=== PATIENT | male | born 1950 | race Caucasian/White ===

== ENCOUNTER → 2017-10-15 | Outpatient (CLI) | payer MEDICARE ==
[2017-10-15 08:39] LABS: Albumin 4.5 g/dL (3.5-5.0); Calcium 10.2 mg/dL (8.4-10.2); Potassium 4.8 mmol/L (3.5-5.1); Total Bilirubin 0.7 mg/dL (0.2-1.3); Total Protein 7.6 g/dL (6.3-8.2)
== END | disposition home or self-care (01) ==
LOC: LABWHC1 07:10
PROVIDERS: ATTEND Internal Medicine Interventional Cardiology
DX: E78.2 Mixed hyperlipidemia (principal)
CPT/HCPCS: 36415; 80053; 80061

== ENCOUNTER → 2018-06-23 | Outpatient (CLI) | payer MEDICARE ==
[2018-06-23 11:58] LABS: LDL Cholesterol,Calculated 77.8 mg/dL (0.0-131.0); VLDL Calculation 25.2 mg/dL (5.00-40.00)
== END ==
LOC: LABWHC1 06:45
PROVIDERS: ATTEND Internal Medicine Interventional Cardiology
DX: E78.2 Mixed hyperlipidemia (principal)
CPT/HCPCS: 36415; 80061; 84450; 84460

== ENCOUNTER 2018-12-09 12:41 | Observation (INO) | payer MEDICARE ==
[2018-12-09] MEDS ORDERED: SODIUM CHLORIDE 0.9% 1,000 ML IV STA (13:09)
--- NOTE | 2018-12-09 13:18 | ED ---
Syncope HPI - General Chief Complaint: Syncope Stated Complaint: near syncope Time Seen by Provider: 12/09/18 12:41 Source: patient, family, EMS, RN notes reviewed Mode of arrival: EMS Limitations: no limitations - History of Present Illness Initial Comments: This is a 68-year-old male with a history of hypertension and bypass surgery 2004 who was taking a nap when the past he passed out cold nauseated and was cool and clammy. This initial information was obtained from EMS personnel the patient's arrives she had stated she thought he was acting like he was having seizure-like episode with extension of his arm on the right and flexion of his arm and the left lasting just a few seconds. He was clammy. Blood pressure the 160s systolic. He was confused and did not have any memory of the event. Prior to this he denied any fevers chills nausea vomiting sweats other symptoms. Of note patient did just recently returned from a trip involving about 2700 [address] of [address]. He denies any palpitations any focal weakness any other modifying factors at this time. Also note the patient is a runner normally is slightly bradycardic with heart rates in the mid to high 50s. MD Complaint: loss of consciousness - Related Data Home Medications Medication Instructions Recorded Confirmed Acetaminophen [Tylenol Extra 500 mg PO Q6H PRN 12/09/18 12/09/18 Strength] Aspirin EC [Ecotrin Low Dose] 81 mg PO DAILY 12/09/18 12/09/18 Losartan/Hydrochlorothiazide 1 tab PO DAILY 12/09/18 12/09/18 [Hyzaar 100-12.5 Tablet] Metoprolol Tartrate [Lopressor] 25 mg PO 12/09/18 12/09/18 Metoprolol Tartrate [Lopressor] 50 mg PO [facility] 12/09/18 12/09/18 Multivit-Min/FA/Lycopen/Lutein 1 tab PO DAILY 12/09/18 12/09/18 [Centrum Silver Tablet] Omeprazole Magnesium [PriLOSEC OTC] 20 mg PO DAILY 12/09/18 12/09/18 Pravastatin Sodium [Pravachol] 40 mg PO HS 12/09/18 12/09/18 Super Cinnamon 1 tab PO DAILY 12/09/18 12/09/18 amLODIPine [Norvasc] 5 mg PO BID 12/09/18 12/09/18 Allergies Allergy/AdvReac Type Severity Reaction Status Date / Time No Known Allergies Allergy Verified 12/09/18 13:21 Review of Systems ROS Statement: Those systems with pertinent positive or pertinent negative responses have been documented in the HPI. ROS Other: All systems not noted in ROS Statement are negative. Past Medical History Past Medical History: Hyperlipidemia, Hypertension History of Any Multi-Drug Resistant Organisms: None Reported Past Surgical History: Coronary Bypass/CABG, Heart Catheterization With Stent Past Psychological History: No Psychological Hx Reported Smoking Status: Never smoker Past Alcohol Use History: Occasional Past Drug Use History: None Reported General Exam - General Exam Comments Initial Comments: This is a well-developed well-nourished awake alert oriented 3 male Limitations: no limitations General appearance: alert, in no apparent distress Head exam: Present: atraumatic, normocephalic, normal inspection Eye exam: Present: normal appearance, PERRL, EOMI. Absent: scleral icterus, co njunctival injection, periorbital swelling ENT exam: Present: normal exam, mucous membranes moist Neck exam: Present: normal inspection, full ROM, other (No stridor JVD or bruits). Absent: tenderness, meningismus, lymphadenopathy Respiratory exam: Present: normal lung sounds bilaterally. Absent: respiratory distress, wheezes, rales, rhonchi, stridor Cardiovascular Exam: Present: normal rhythm, bradycardia, normal heart sounds. Absent: systolic murmur, diastolic murmur, rubs, gallop, clicks GI/Abdominal exam: Present: soft, normal bowel sounds. Absent: distended, te nderness, guarding, rebound, rigid Extremities exam: Present: normal inspection, full ROM, normal capillary refill. Absent: tenderness, pedal edema, joint swelling, calf tenderness Back exam: Present: normal inspection Neurological exam: Present: alert, oriented X3, CN II-XII intact Psychiatric exam: Present: normal affect, normal mood Skin exam: Present: warm, dry, intact, normal color. Absent: rash Course Vital Signs 12/09/18 12/09/18 12/09/18 12:43 14:41 15:00 Temperature 97.5 F L Pulse Rate 55 L 58 L 58 L Respiratory 16 18 10 L Rate Blood Pressure 152/81 143/74 O2 Sat by Pulse 100 100 100 Oximetry 12/09/18 12/09/18 12/09/18 15:30 16:00 16:30 Temperature Pulse Rate 63 70 64 Respiratory 14 15 15 Rate Blood Pressure 143/74 143/74 143/74 O2 Sat by Pulse 100 100 100 Oximetry - Reevaluation(s) Reevaluation #1: 12/09/18 16:57 I did reevaluate patient several occasions no changes he feels back to normal. Medical Decision Making - Medical Decision Making I did discuss the findings with patient family members as well as with Dr. Lombardi the patient will be admitted MRI will be ordered. Neurology will be consulted patient will be started on Keppra. - Lab Data Result diagrams: 12/09/18 12:50 12/09/18 12:50 Lab Results 12/09/18 12/09/18 12/09/18 Range/Units 12:50 12:50 12:50 WBC 6.8 (3.8-10.6) k/uL RBC 4.76 (4.30-5.90) m/uL Hgb 13.8 (13.0-17.5) gm/dL Hct 39.8 (39.0-53.0) % MCV 83.7 (80.0-100.0) fL MCH 29.0 (25.0-35.0) pg MCHC 34.6 (31.0-37.0) g/dL RDW 12.8 (11.5-15.5) % Plt Count 250 (150-450) k/uL Neutrophils % 60 % Lymphocytes % 26 % Monocytes % 8 % Eosinophils % 3 % Basophils % 1 % Neutrophils # 4.1 (1.3-7.7) k/uL Lymphocytes # 1.8 (1.0-4.8) k/uL Monocytes # 0.5 (0-1.0) k/uL Eosinophils # 0.2 (0-0.7) k/uL Basophils # 0.1 (0-0.2) k/uL PT 10.5 (9.0-12.0) sec INR 1.0 (<1.2) APTT 21.1 L (22.0-30.0) sec D-Dimer 0.29 (<0.60) mg/L FEU Sodium 136 L (137-145) mmol/L Potassium 4.1 (3.5-5.1) mmol/L Chloride 104 (98-107) mmol/L Carbon Dioxide 22 (22-30) mmol/L Anion Gap 10 mmol/L BUN 25 H (9-20) mg/dL Creatinine 1.02 (0.66-1.25) mg/dL Est GFR (CKD-EPI)AfAm 86 (>60 ml/min/1.73 sqM) Est GFR (CKD-EPI)NonAf 74 (>60 ml/min/1.73 sqM) Glucose 103 H (74-99) mg/dL Calcium 9.5 (8.4-10.2) mg/dL Magnesium 1.6 (1.6-2.3) mg/dL Total Bilirubin 0.6 (0.2-1.3) mg/dL AST 33 (17-59) U/L ALT 28 (21-72) U/L Alkaline Phosphatase 60 (38-126) U/L Creatine Kinase 139 (55-170) U/L Troponin I (0.000-0.034) ng/mL Total Protein 7.0 (6.3-8.2) g/dL Albumin 4.0 (3.5-5.0) g/dL TSH 3.760 (0.465-4.680) mIU/L Urine Color Urine Appearance (Clear) Urine pH (5.0-8.0) Ur Specific [place] (1.001-1.035) Urine Protein (Negative) Urine Glucose (UA) (Negative) Urine Ketones (Negative) Urine Blood (Negative) Urine Nitrite (Negative) Urine Bilirubin (Negative) Urine Urobilinogen (<2.0) mg/dL Ur Leukocyte Esterase (Negative) 12/09/18 12/09/18 Range/Units 12:50 13:30 WBC (3.8-10.6) k/uL RBC (4.30-5.90) m/uL Hgb (13.0-17.5) gm/dL Hct (39.0-53.0) % MCV (80.0-100.0) fL MCH (25.0-35.0) pg MCHC (31.0-37.0) g/dL RDW (11.5-15.5) % Plt Count (150-450) k/uL Neutrophils % % Lymphocytes % % Monocytes % % Eosinophils % % Basophils % % Neutrophils # (1.3-7.7) k/uL Lymphocytes # (1.0-4.8) k/uL Monocytes # (0-1.0) k/uL Eosinophils # (0-0.7) k/uL Basophils # (0-0.2) k/uL PT (9.0-12.0) sec INR (<1.2) APTT (22.0-30.0) sec D-Dimer (<0.60) mg/L FEU Sodium (137-145) mmol/L Potassium (3.5-5.1) mmol/L Chloride (98-107) mmol/L Carbon Dioxide (22-30) mmol/L Anion Gap mmol/L BUN (9-20) mg/dL Creatinine (0.66-1.25) mg/dL Est GFR (CKD-EPI)AfAm (>60 ml/min/1.73 sqM) Est GFR (CKD-EPI)NonAf (>60 ml/min/1.73 sqM) Glucose (74-99) mg/dL Calcium (8.4-10.2) mg/dL Magnesium (1.6-2.3) mg/dL Total Bilirubin (0.2-1.3) mg/dL AST (17-59) U/L ALT (21-72) U/L Alkaline Phosphatase (38-126) U/L Creatine Kinase (55-170) U/L Troponin I <0.012 (0.000-0.034) ng/mL Total Protein (6.3-8.2) g/dL Albumin (3.5-5.0) g/dL TSH (0.465-4.680) mIU/L Urine Color Light Yellow Urine Appearance Clear (Clear) Urine pH 6.5 (5.0-8.0) Ur Specific [place] 1.011 (1.001-1.035) Urine Protein Negative (Negative) Urine Glucose (UA) Negative (Negative) Urine Ketones Negative (Negative) Urine Blood Negative (Negative) Urine Nitrite Negative (Negative) Urine Bilirubin Negative (Negative) Urine Urobilinogen <2.0 (<2.0) mg/dL Ur Leukocyte Esterase Negative (Negative) - Radiology Data Radiology results: report reviewed (I did review the imaging and reports x-rays are unremarkable CAT scan does show some evidence of a hemangioma versus lacunar infarct on the right side.), image reviewed Disposition Clinical Impression: Seizure, Vasovagal reaction Disposition: ADMITTED IP TO THIS [facility] Condition: Stable Referrals: Carlos Lombardi MD [Primary Care Provider] - 1-2 days
[2018-12-09 13:35] LABS: Basophils # (A) 0.1 k/uL (0-0.2); Basophils % (A) 1 %; Eosinophils # (A) 0.2 k/uL (0-0.7); Eosinophils % (A) 3 %; HCT 39.8 % (39.0-53.0); HGB 13.8 gm/dL (13.0-17.5); Lymphocytes # (A) 1.8 k/uL (1.0-4.8); Lymphocytes % (A) 26 %; MCHC 34.6 g/dL (31.0-37.0); MCV 83.7 fL (80.0-100.0); Mean Platelet Volume 6.7; Monocytes # (A) 0.5 k/uL (0-1.0); Monocytes % (A) 8 %; Neutrophils # (A) 4.1 k/uL (1.3-7.7); Neutrophils % (A) 60 %; Platelet Count 250 k/uL (150-450); RBC 4.76 m/uL (4.30-5.90); RDW 12.8 % (11.5-15.5); WBC 6.8 k/uL (3.8-10.6)
[2018-12-09 13:43] LABS: Calcium 9.5 mg/dL (8.4-10.2); Magnesium 1.6 mg/dL (1.6-2.3); Potassium 4.1 mmol/L (3.5-5.1); Total Bilirubin 0.6 mg/dL (0.2-1.3)
[2018-12-09 13:43] LABS: Appearance,Urine Clear (Clear); Bilirubin,Urine Negative (Negative); Blood,Urine Negative (Negative); Color,Urine Light Yellow; Glucose,Urine (UA) Negative (Negative); Ketones,Urine Negative (Negative); Leukocyte Esterase,Urine Negative (Negative); Nitrite,Urine Negative (Negative); PH, Urine 6.5 (5.0-8.0); Protein,Urine Negative (Negative); Specific Gravity,Urine 1.011 (1.001-1.035); Urobilinogen,Urine <2.0 mg/dL (<2.0)
--- NOTE | 2018-12-09 13:49 | XR ---
EXAMINATION TYPE: XR chest 2V DATE OF EXAM: 12/09/2018 COMPARISON: NONE HISTORY: Cough and near syncope TECHNIQUE: Frontal and lateral views of the chest are obtained. FINDINGS: There is no focal air space opacity, pleural effusion, or pneumothorax seen. Post CABG darci nges of the chest are seen. There is mild right hemidiaphragm elevation. The cardiac silhouette size is within normal limits. Mild multilevel degenerative changes of the spine. The osseous structures a re intact. IMPRESSION: No acute cardiopulmonary process.
[2018-12-09 13:56] LABS: D-Dimer 0.29 mg/L FEU (<0.60); Prothrombin Time 10.5 sec (9.0-12.0)
--- NOTE | 2018-12-09 13:59 | CT ---
EXAMINATION TYPE: CT brain wo con DATE OF EXAM: 12/09/2018 COMPARISON: INDICATION: Possible seizure while sleeping. DLP: 1172.4 mGycm, Automated exposure control for dose reduction was used. CONTRAST: None CT of the brain is performed utilizing 3 mm thick sections through the posterior fossa and 3 mm thick sections through the remaining calvarium. Study is performed within 24 hours of arrival to the hosp ital. No abnormal hyperdensity is present to suggest an acute intracranial hemorrhage. No mass lesion is evident. Some physiologic basal ganglion calcification is present. No acute infarcts are evident. There is some mild periventricular white matter hypodensity, likely on the basis of chronic white matter ischemic changes. Ventricles and sulci are appropriate for the patient age. There is a hypodensity posterior and super ior to the occipital horn right lateral ventricle. This could be trapped ventricle. Other etiologies are not excluded. Recommend follow-up contrast MRI brain with the patient is stable. Other etiologies could include hemangioblastoma. Paranasal sinuses and mastoid air cells within the [id number] are clear. IMPRESSIONS: 1. There may be trapped ventricle adjacent to the occipital horn right lateral ventricle. Other fran ologies could include a hemangioma or lacunar infarct. Additional workup with contrast MRI of the pat ient is stable is recommended
[2018-12-09 14:05] LABS: Partial Thromboplastin Time 21.1 sec (22.0-30.0)
[2018-12-09] MEDS ORDERED: levETIRAcetam IV 1,000 MG in SALINE 1 100ML.BAG IVPB STA (16:57)
[2018-12-09] MEDS ORDERED: NALOXONE 0.4 MG/ML 1 ML VIAL IV PRN (17:00)
[2018-12-09] MEDS: SODIUM CHLORIDE 0.9% 1,000 ML IV SCH (17:28)
[2018-12-09 18:59] VITALS: BMI 28.6
[2018-12-09] MEDS ORDERED: ACETAMINOPHEN TAB 500 MG TAB PO PRN (19:25)
--- NOTE | 2018-12-09 20:28 | US ---
EXAMINATION TYPE: US carotid duplex BILAT DATE OF EXAM: 12/09/2018 COMPARISON: NONE CLINICAL HISTORY: Pain. Possible seizure EXAM MEASUREMENTS: RIGHT: Peak Systolic Velocity (PSV) cm/sec ----- Right CCA: 88.6 ----- Right ICA: 125.9 ----- Right ECA: 114.1 ICA/CCA ratio: 1.4 RIGHT: End Diastole cm/sec ----- Right CCA: 17.3 ----- Right ICA: 37.2 ----- Right ECA: 9.7 LEFT: Peak Systolic Velocity (PSV) cm/sec ----- Left CCA: 98.7 ----- Left ICA: 85.7 ----- Left ECA: 79.8 ICA/CCA ratio: 0.9 LEFT: End Diastole cm/sec ----- Left CCA: 20.2 ----- Left ICA: 27.5 ----- Left ECA: 7.1 VERTEBRALS (direction of flow): Right Vertebral: Antegrade Left Vertebral: Antegrade Rhythm: Normal IMPRESSION: No significant stenosis.
--- NOTE | 2018-12-09 20:36 | P.HPIM ---
History of Present Illness H&P Date: 12/09/18 Chief Complaint: Syncope, atypical seizure, CAD, hypertension, hyperlipidemia, hypothyroidis 68-year-old male one of my office patient with known for many years with past medical history of CAD post CABG, history of stent placement as well is seen cardiology regular basis also patient is known to have history of hypertension hyperlipidemia and GERD who has been doing well until today when apparently was taking and nap woke up having an episode involving more tremor and shakiness in the right upper extremity jump out of bed mildly confuse sweaty and not feeling well did not compare has what he was doing his help him to go back in bed and all of a sudden had an episode of tonic clonic more tremor and shakiness in the right side and the left side but was not very clear tonic clonic but more atypical seizure with tremor on one side along with slight loss of consciousness for a few minutes and he regained his consciousness his called 911 patient brought to demurs department at [facility] CT of the brain was performed did not show any bleeding but small lacunar area of abnormality in the brain stem. Lab value and testing with troponin negative no sign of infection. 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 Review of Systems CONSTITUTIONAL: Well-developed no acute respiratory distress. EYES: No icterus sclerae, no conjunctivitis. EARS, NOSE, MOUTH, THROAT, and FACE: No sore throat, lymphadenopathy, carotid bruits or deformity. RESPIRATORY: No SOB cough or wheezes. CARDIOVASCULAR: No CP, Palpitation, PND, Orthopnea, or angina. GASTROINTESTINAL: No Abd pain, Nausea or vomiting, no Diarrhea or constipation, No GI Bleed, no distention or masses. GENITOURINARY: Negative for Hematuria or UTI, no kidney stones. INTEGUMENT/BREAST: Negative for any muscular injury with mild osteoarthritis.. HEMATOLOGIC/LYMPHATIC: Negative for bleed or purpura. MUSCULOSKELTAL: Negative for Myalgia or arthralgia. NEURLOGICAL: Positive loss of consciousness questionable of atypical seizure, syncope with no other neuro loss after the episode is gone. BEHAVIORAL/PSYCH: Negative. ENDOCRINE: Negative. Past Medical History Past Medical History: GERD/Reflux, Hyperlipidemia, Hypertension, Osteoarthritis (OA), Pneumonia History of Any Multi-Drug Resistant Organisms: None Reported Past Surgical History: Coronary Bypass/CABG, Heart Catheterization With Stent Date of Last Stent Placement:: 1999 Past Psychological History: No Psychological Hx Reported Smoking Status: Never smoker Past Alcohol Use History: Occasional Past Drug Use History: None Reported - Past Family History Father Family Medical History: Diabetes Mellitus, Hypertension Additional Family Medical History / Comment(s): CABG, aortic stenosis Mother Family Medical History: Cancer, Hypertension Additional Family Medical History / Comment(s): lived to be . [facility] [place] Medications and Allergies Home Medications Medication Instructions Recorded Confirmed Type Acetaminophen [Tylenol Extra 500 mg PO Q6H PRN 12/09/18 12/09/18 History Strength] Aspirin EC [Ecotrin Low Dose] 81 mg PO DAILY 12/09/18 12/09/18 History Losartan/Hydrochlorothiazide 1 tab PO DAILY 12/09/18 12/09/18 History [Hyzaar 100-12.5 Tablet] Metoprolol Tartrate [Lopressor] 25 mg PO HS 12/09/18 12/09/18 History Metoprolol Tartrate [Lopressor] 50 mg PO QAM 12/09/18 12/09/18 History Multivit-Min/FA/Lycopen/Lutein 1 tab PO DAILY 12/09/18 12/09/18 History [Centrum Silver Tablet] Omeprazole Magnesium [PriLOSEC OTC] 20 mg PO DAILY 12/09/18 12/09/18 History Pravastatin Sodium [Pravachol] 40 mg PO HS 12/09/18 12/09/18 History Super Cinnamon 1 tab PO DAILY 12/09/18 12/09/18 History amLODIPine [Norvasc] 5 mg PO BID 12/09/18 12/09/18 History Allergies Allergy/AdvReac Type Severity Reaction Status Date / Time No Known Allergies Allergy Verified 12/09/18 13:21 Physical Exam Vitals: Vital Signs Temp Pulse Pulse Resp BP BP Pulse Ox 12/09/18 18:23 97.5 F L 63 16 139/95 99 12/09/18 18:04 98.2 F 70 16 151/72 96 12/09/18 18:00 65 18 162/87 100 12/09/18 17:30 61 15 143/74 100 12/09/18 17:00 62 12 143/74 100 12/09/18 16:30 64 15 143/74 100 12/09/18 16:00 70 15 143/74 100 12/09/18 15:30 63 14 143/74 100 12/09/18 15:00 58 L 10 L 143/74 100 12/09/18 14:41 58 L 18 100 12/09/18 12:43 97.5 F L 55 L 16 152/81 100 Intake and Output 12/09/18 12/09/18 12/09/18 06:59 14:59 22:59 Other: Weight 81.647 kg General Appearance: Alert, cooperative, no distress, appears stated age. Neck HEENT: Supple, no lymphadenopathy, no thyroid enlargement, no carotid bruits. Lungs: Clear to auscultation without crackles or wheezes no rhonchi, no deformity. Chest Wall: Chest wall normal expansion with deep inspiration no tenderness and no deformity was found on exam, no costochondral pain or discomfort. Heart: Regular rate and rhythm, S1, S2 normal, no murmur, rub or gallop. Back: Symmetric, no curvature, ROM normal, no CVA tenderness. Abdomen: Soft, non-tender, bowel sounds active all four quadrants, no masses, no organomegaly. Extremities: Extremities normal, atraumatic, no cyanosis or edema. Pulses: 2+ and symmetric. Skin: Skin color, texture, tugor normal, no rashes or lesions. Neurologic: Alert oriented x3 cranial nerves II through XII intact, no motor deficit, no abnormal balance or gait. Results CBC & Chem 7: 12/09/18 12:50 12/09/18 12:50 Labs: Abnormal Lab Results - Last 24 Hours (Table) 12/09/18 12/09/18 Range/Units 12:50 12:50 APTT 21.1 L (22.0-30.0) sec Sodium 136 L (137-145) mmol/L BUN 25 H (9-20) mg/dL Glucose 103 H (74-99) mg/dL Thrombosis Risk Factor Assmnt - DVT/VTE Prophylaxis DVT/VTE Prophylaxis: Pharmacologic Prophylaxis ordered, Mechanical Prophylaxis ordered - Choose All That Apply Each Risk Factor Represents 2 Points: Age 61-74 years Thrombosis Risk Factor Assessment Total Risk Factor Score: 2 Thrombosis Risk Factor Assessment Level: Low Risk Assessment and Plan Plan: 1 severe acute syncopal episode: Most likely atypical seizure, consult neurology, continue 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 2 atypical seizure: Patient was loaded with Keppra 500 mg twice a day will be giving, MRI of the brain was order, awaiting for neurology consult patient will be going for EEG as well if any further episodes while in the hospital smaller dose of benzodiazepine on demand to be use. 3 CAD: Post CABG and PCI with stent placement, patient is doing very well on secondary prevention no chest pain or angina. 4 hypertension: Remain on amlodipine 5 mg twice a day along with metoprolol total of 75 mg daily and losartan HCT handed/12.5 mg daily. 5 hyperlipidemia: Has been on pravastatin 40 mg a day. 6 severe GERD: Continue omeprazole 20 mg daily. 7 DVT prophylaxis: Early mobilization and knee-high HARI hose. CODE STATUS: Full code. Admit patient to inpatient status for 1-2 nights.
[2018-12-09] MEDS: amLODIPine 5 MG TAB PO SCH (20:38)
[2018-12-09] MEDS ORDERED: PRAVASTATIN SODIUM 40 MG TAB PO SCH (21:00)
[2018-12-09] MEDS ORDERED: METOPROLOL TARTRATE 25 MG TAB PO SCH (21:00)
[2018-12-10] MEDS: SODIUM CHLORIDE 0.9% 1,000 ML IV SCH (03:51)
[2018-12-10 03:59] VITALS: RESP 18
[2018-12-10] MEDS ORDERED: PANTOPRAZOLE 40 MG TABLET PO SCH (07:30)
[2018-12-10] MEDS ORDERED: LOSARTAN-HCTZ 50-12.5 MG 1 EACH TAB PO SCH (09:00)
[2018-12-10] MEDS ORDERED: ASPIRIN 81 MG PO SCH (09:00)
[2018-12-10] MEDS ORDERED: METOPROLOL TARTRATE 50 MG TAB PO SCH (09:00)
[2018-12-10] MEDS: amLODIPine 5 MG TAB PO SCH (09:23)
--- NOTE | 2018-12-10 10:15 | P.CRDCN ---
History of Present Illness Consult date: 12/10/18 Requesting physician: Carlos Lombardi Reason for Consult (text): This is a pleasant 68-year-old gentleman who follows now with Dr. Mckeon in the office, he used to be a patient of Dr. Stewart. He has a past medical history significant for coronary artery bypass grafting surgery in 2004 at which time he underwent a KIRAN to the LAD and a saphenous vein graft to the diagonal. He also has history of stent placement in 1999 to the diagonal branch.. He has history of hypertension, hyperlipidemia, GERD, frequent vasovagal episodes. Patient has just returned from a long road trip, he states that he was taking a nap at home, woke up with what appeared to be tremors and shakiness according to his . Shortly after that, it appears that the patient had seizure-like activity, his right arm became extremely rigid, it appears as though it may have been an episode of tonic-clonic tremor. Patient was not aware of what was going on, he did appear to lose consciousness for a few minutes. Upon regaining consciousness he was alert and oriented 3, did not lose bowel or bladder function, however he did have significant nausea with an episode of vomiting. 911 was called by his at that time. The initial CAT scan of the brain did not show any bleeding but it showed a small listener area of abnormality at the brainstem. Neurology consultation has been requested, MRI and EEG have been ordered for today. At the time of this episode, the did check the patient's blood pressure which was normal, heart rate was also docu mented to be normal at that time. Chest x-ray did not reveal any acute cardiopulmonary process. EKG on arrival here showed a sinus bradycardia with first-degree AV block and evidence of left ventricular hypertrophy. Carotid Doppler study did not reveal any evidence of significant stenosis. Blood pressure on arrival here 152/80 with a heart rate in the 50s to 60s, 100% on room air. Blood pressure 152/60 with a heart rate in the 50s, 97% on room air. White blood cell count 6.8, hemoglobin 13.8, platelet count 250. D-dimer 0.2. Sodium 136, potassium 4.1, BUN 25 and creatinine 1.0, magnesium is 1.6. TSH is 3.7, troponin 0.012. At the time of my examination this morning, patient feels well, he feels back to his normal self other than the fact he states he feels tired. Past Medical History Past Medical History: GERD/Reflux, Hyperlipidemia, Hypertension, Osteoarthritis (OA), Pneumonia History of Any Multi-Drug Resistant Organisms: None Reported Past Surgical History: Coronary Bypass/CABG, Heart Catheterization With Stent Date of Last Stent Placement:: 1999 Past Psychological History: No Psychological Hx Reported Smoking Status: Never smoker Past Alcohol Use History: Occasional Past Drug Use History: None Reported - Past Family History Father Family Medical History: Diabetes Mellitus, Hypertension Additional Family Medical History / Comment(s): CABG, aortic stenosis Mother Family Medical History: Cancer, Hypertension Additional Family Medical History / Comment(s): lived to be 91. Bone CA Medications and Allergies Home Medications Medication Instructions Recorded Confirmed Type Acetaminophen [Tylenol Extra 500 mg PO Q6H PRN 12/09/18 12/09/18 History Strength] Aspirin EC [Ecotrin Low Dose] 81 mg PO DAILY 12/09/18 12/09/18 History Losartan/Hydrochlorothiazide 1 tab PO DAILY 12/09/18 12/09/18 History [Hyzaar 100-12.5 Tablet] Metoprolol Tartrate [Lopressor] 25 mg PO HS 12/09/18 12/09/18 History Metoprolol Tartrate [Lopressor] 50 mg PO [facility] 12/09/18 12/09/18 History Multivit-Min/FA/Lycopen/Lutein 1 tab PO DAILY 12/09/18 12/09/18 History [Centrum Silver Tablet] Omeprazole Magnesium [PriLOSEC OTC] 20 mg PO DAILY 12/09/18 12/09/18 History Pravastatin Sodium [Pravachol] 40 mg PO HS 12/09/18 12/09/18 History Super Cinnamon 1 tab PO DAILY 12/09/18 12/09/18 History amLODIPine [Norvasc] 5 mg PO BID 12/09/18 12/09/18 History Allergies Allergy/AdvReac Type Severity Reaction Status Date / Time No Known Allergies Allergy Verified 12/09/18 13:21 Physical Exam Vitals: Vital Signs Temp Pulse Pulse Resp BP BP Pulse Ox 12/10/18 03:59 97.9 F 53 L 18 153/67 97 12/09/18 23:42 55 L 16 12/09/18 23:41 98.0 F 55 L 16 119/60 100 12/09/18 20:00 97.5 F L 56 L 18 134/72 98 12/09/18 18:23 97.5 F L 63 16 139/95 99 12/09/18 18:04 98.2 F 70 16 151/72 96 12/09/18 18:00 65 18 162/87 100 12/09/18 17:30 61 15 143/74 100 12/09/18 17:00 62 12 143/74 100 12/09/18 16:30 64 15 143/74 100 12/09/18 16:00 70 15 143/74 100 12/09/18 15:30 63 14 143/74 100 12/09/18 15:00 58 L 10 L 143/74 100 12/09/18 14:41 58 L 18 100 12/09/18 12:43 97.5 F L 55 L 16 152/81 100 Intake and Output 12/09/18 12/10/18 12/10/18 22:59 06:59 14:59 Intake Total 640 480 Output Total 500 Balance 140 480 Intake: Intake, IV Titration 640 Amount Sodium Chloride 0.9% 1, 640 000 ml @ 80 mls/hr IV . [id number] [facility] Rx#:[id number] Oral 480 Output: Urine 500 Other: Voiding Method Toilet Toilet Urinal Urinal # Voids 3 1 Weight 83 kg PHYSICAL EXAMINATION: GENERAL: 68-year-old gentleman in no acute distress at the time of my examination HEENT: Head is atraumatic, normocephalic. Pupils equal, round. Sclera anicter ic. Conjunctiva are clear. Mucous membranes of the mouth are moist. Neck is supple. There is no elevated jugular venous pressure. No carotid bruit is heard. HEART EXAMINATION: Heart S1 and S2 ,a systolic ejection murmur is heard at the base CHEST EXAMINATION: Lungs are clear to auscultation and precussion. No chest wall tenderness is noted on palpation or with deep breathing. ABDOMEN: Soft, nontender. Bowel sounds are heard. No organomegaly noted. EXTREMITIES: 2+ peripheral pulses with no evidence of peripheral edema and no calf tenderness noted. NEUROLOGIC patient is awake, alert and oriented X3. . Results 12/09/18 12:50 12/09/18 12:50 Cardiac Enzymes 12/09/18 12/09/18 Range/Units 12:50 12:50 AST 33 (17-59) U/L Troponin I <0.012 (0.000-0.034) ng/mL Coagulation 12/09/18 Range/Units 12:50 PT 10.5 (9.0-12.0) sec APTT 21.1 L (22.0-30.0) sec CBC 12/09/18 Range/Units 12:50 WBC 6.8 (3.8-10.6) k/uL RBC 4.76 (4.30-5.90) m/uL Hgb 13.8 (13.0-17.5) gm/dL Hct 39.8 (39.0-53.0) % Plt Count 250 (150-450) k/uL Comprehensive Metabolic Panel 12/09/18 Range/Units 12:50 Sodium 136 L (137-145) mmol/L Potassium 4.1 (3.5-5.1) mmol/L Chloride 104 (98-107) mmol/L Carbon Dioxide 22 (22-30) mmol/L BUN 25 H (9-20) mg/dL Creatinine 1.02 (0.66-1.25) mg/dL Glucose 103 H (74-99) mg/dL Calcium 9.5 (8.4-10.2) mg/dL AST 33 (17-59) U/L ALT 28 (21-72) U/L Alkaline Phosphatase 60 (38-126) U/L Total Protein 7.0 (6.3-8.2) g/dL Albumin 4.0 (3.5-5.0) g/dL Current Medications Generic Name Dose Route Start Last Admin Trade Name Freq PRN Reason Stop Dose Admin Acetaminophen 500 mg 12/09/18 19:25 Tylenol Tab PO Q6H PRN Pain Amlodipine Besylate 5 mg 12/09/18 21:00 12/10/18 09:23 Norvasc PO 5 mg BID [facility] Administration Aspirin 81 mg 12/10/18 09:00 12/10/18 09:23 Aspirin PO 81 mg DAILY [facility] Administration HCTZ/Losartan Potassium 2 each 12/10/18 09:00 12/10/18 09:23 Hyzaar 50-12.5 PO 2 each DAILY [place] Administration Sodium Chloride 1,000 mls @ 80 mls/hr 12/09/18 17:00 12/10/18 03:51 Saline 0.9% IV 80 mls/hr .[id number] [facility] Administration Metoprolol Tartrate 25 mg 12/09/18 21:00 12/09/18 20:38 Lopressor PO 25 mg HS [facility] Administration Metoprolol Tartrate 50 mg 12/10/18 09:00 12/10/18 09:23 Lopressor PO 50 mg QAM [facility] Administration Naloxone HCl 0.2 mg 12/09/18 17:00 Narcan IV Q2M PRN Opioid Reversal Pantoprazole Sodium 40 mg 12/10/18 07:30 12/10/18 07:05 Protonix PO 40 mg [id number] [facility] Administration Pravastatin Sodium 40 mg 12/09/18 21:00 12/09/18 20:38 Pravachol PO 40 mg HS [place] Administration Intake and Output 12/09/18 12/10/18 12/10/18 22:59 06:59 14:59 Intake Total 640 480 Output Total 500 Balance 140 480 Intake: Intake, IV Titration 640 Amount Sodium Chloride 0.9% 1, 640 000 ml @ 80 mls/hr IV . [id number] [facility] Rx#:[id number] Oral 480 Output: Urine 500 Other: Voiding Method Toilet Toilet Urinal Urinal # Voids 3 1 Weight 83 kg 12/09/18 12:50 12/09/18 12:50 EKG Interpretations (text) EKG shows sinus bradycardia with first-degree AV block and evidence of left ventricular hypertrophy. Assessment and Plan Plan: Assessment and plan #1 acute episode of unresponsiveness with possible seizure activity. Patient has been initiated on Keppra, MRI and EEG have been ordered for today, neurology following #2 known history of coronary artery disease with prior bypass surgery in 2004 with KIRAN to the LAD and saphenous vein graft to the diagonal branch. Patient also has history of diagonal stenting in 1999 #3 hypertension #4 hyperlipidemia #5 history of vasovagal episodes #6 GERD Plan We will obtain an echocardiogram with Doppler study. Continue to monitor for any significant tachycardia or bradycardia arrhythmias. Await results of EEG and MRI as well as neurology input. Further recommendations to follow DNP note has been reviewed, I agree with a documented findings and plan of care. Patient was seen and examined.
--- NOTE | 2018-12-10 10:45 | ECHOF ---
Referral Reason:Seizure MEASUREMENTS -------- HEIGHT: 177.8 cm WEIGHT: 82.6 kg BP: 153/67 RVIDd: 4.6 cm (< 3.3) IVSd: 1.3 cm (0.6 - 1.1) LVIDd: 4.5 cm (3.9 - 5.3) LVPWd: 1.4 cm (0.6 - 1.1) IVSs: 1.9 cm LVIDs: 2.9 cm LVPWs: 1.9 cm LA Diam: 4.3 cm (2.7 - 3.8) LAESV Index (A-L): 25.79 ml/m Ao Diam: 2.9 cm (2.0 - 3.7) AV Cusp: 1.9 cm (1.5 - 2.6) LA Diam: 4.3 cm (2.7 - 3.8) MV EXCURSION: 26.377 mm (> 18.000) MV EF SLOPE: 126 mm/s (70 - 150) EPSS: 1.7 cm MV E Ramu: 0.98 m/s MV DecT: 183 ms MV A Ramu: 0.72 m/s MV E/A Ratio: 1.37 RAP: 5.00 mmHg RVSP: 43.24 mmHg FINDINGS -------- Sinus rhythm. This was a technically good study. The left ventricular size is normal. There is moderate concentric left ventricular hypertrophy. O verall left ventricular systolic function is normal with, an EF between 60 - 65 %. The right ventricle is severely enlarged. Left atrium is normal size by volume. The right atrial size is normal. Interatrial and interventricular septum intact. The aortic valve is trileaflet and appears structurally normal. The mitral valve is normal. Mild mitral regurgitation is present. There is minimal mitral valve p rolapse. Moderate to severe tricuspid regurgitation present. There is mild pulmonary hypertension. The rig ht ventricular systolic pressure, as measured by Doppler, is 43.24mmHg. The aortic root size is normal. NOT WELL VISUALIZED There is no pericardial effusion. CONCLUSIONS -------- 1. Sinus rhythm. 2. This was a technically good study. 3. The left ventricular size is normal. 4. There is moderate concentric left ventricular hypertrophy. 5. Overall left ventricular systolic function is normal with, an EF between 60 - 65 %. 6. The right ventricle is severely enlarged. 7. Left atrium is normal size by volume. 8. The right atrial size is normal. 9. Interatrial and interventricular septum intact. 10. The aortic valve is trileaflet and appears structurally normal. 11. The mitral valve is normal. 12. Mild mitral regurgitation is present. 13. Moderate to severe tricuspid regurgitation present. 14. There is mild pulmonary hypertension. 15. The right ventricular systolic pressure, as measured by Doppler, is 43.24mmHg. 16. The aortic root size is normal. 17. NOT WELL VISUALIZED 18. There is no pericardial effusion. EARLY CHILDHOOD EDUCATOR AIDE: Alda Rubi RDCS
--- NOTE | 2018-12-10 10:53 | P.CNNES ---
History of Present Illness Consult date: 12/10/18 Reason for Consult: Possible seizure versus vasovagal episode. History of Present Illness: Patient is a 68-year-old male, who has history of vasovagal episodes for a very long time, since last 50+ years. Patient gets fainting episodes, whenever he sees blood, or gets blood draw, or sometimes with other situations. Patient had an unusual episode last night therefore his brought him to the hospital by ambulance. Shortly before noon patient went to take a nap. While he was taking a nap, he probably had a bad dream, and suddenly jerked, as if flying out of bed, legs in the air, almost as if he was preventing a fall, trying to catch himself. He woke up, was sweaty. His checked his blood pressure was 160 systolic and heart rate was fine. He states that he does not feel right. About 5-10 minutes later, patient was laying in the bed, and suddenly he had a tonic episode in which for his one arm was flexed, other extended, he had a glassy look on his face and the color was not right. He started sweating. The episode lasted for 5-10 seconds. There was no tongue bite or loss of control of urine. He felt nauseated afterwards. Once he sat up, patient vomited consisting of gastric biliary fluid. Patient's called 911 and he was brought to the hospital. Patient at present feels fine. Patient has no recollection of memory of the event that happened as above. Patient denies any history of tobacco. He drinks 1 drink of beer or wine every day or every other day. Never heavy drinker. Patient is very active, runs 2-5 miles, couple times a week.. Patient does have hypertension. Patient has long-standing history of vasovagal episodes as mentioned above. One time he had some convulsive syncope a few years ago. A few months ago patient had a syncope after he came back from the bathroom after bowel movement. He never had obvious seizure in the past. Patient's blood test shows normal CBC, PT/PTT, sodium 136 potassium 4.1 and renal functions normal. Liver functions normal, TSH 3.76. UA is negative. His cholesterol is 172, LDL 77, HDL 69. CPK normal. Troponin negative. EKG showed sinus bradycardia with first-degree AV block. Chest x-ray showed no acute cardiopulmonary process. Patient had computed tomography scan of the brain without contrast, which revealed possibility of trapped ventricle adjacent to the occipital horn of the right lateral ventricle. Other etiologies could include hemangioma or lacunar infarct. MRI recommended. Patient had a carotid Doppler which revealed no significant stenosis. Antegrade flow in both vertebral arteries. Patient had a 2-D echo, the results are pending. Review of Systems All systems: negative (As mentioned above in HPI. Denies any pain, headache, focal symptoms, chest pain shortness of breath.) Past Medical History Past Medical History: GERD/Reflux, Hyperlipidemia, Hypertension, Osteoarthritis (OA), Pneumonia History of Any Multi-Drug Resistant Organisms: None Reported Past Surgical History: Coronary Bypass/CABG, Heart Catheterization With Stent Date of Last Stent Placement:: 1999 Past Psychological History: No Psychological Hx Reported Smoking Status: Never smoker Past Alcohol Use History: Occasional Past Drug Use History: None Reported - Past Family History Father Family Medical History: Diabetes Mellitus, Hypertension Additional Family Medical History / Comment(s): CABG, aortic stenosis Mother Family Medical History: Cancer, Hypertension Additional Family Medical History / Comment(s): lived to be 91. Bone CA Medications and Allergies Home Medications Medication Instructions Recorded Confirmed Type Acetaminophen [Tylenol Extra 500 mg PO Q6H PRN 12/09/18 12/09/18 History Strength] Aspirin EC [Ecotrin Low Dose] 81 mg PO DAILY 12/09/18 12/09/18 History Losartan/Hydrochlorothiazide 1 tab PO DAILY 12/09/18 12/09/18 History [Hyzaar 100-12.5 Tablet] Metoprolol Tartrate [Lopressor] 25 mg PO HS 12/09/18 12/09/18 History Metoprolol Tartrate [Lopressor] 50 mg PO QA 12/09/18 12/09/18 History Multivit-Min/FA/Lycopen/Lutein 1 tab PO DAILY 12/09/18 12/09/18 History [Centrum Silver Tablet] Omeprazole Magnesium [PriLOSEC OTC] 20 mg PO DAILY 12/09/18 12/09/18 History Pravastatin Sodium [Pravachol] 40 mg PO HS 12/09/18 12/09/18 History Super Cinnamon 1 tab PO DAILY 12/09/18 12/09/18 History amLODIPine [Norvasc] 5 mg PO BID 12/09/18 12/09/18 History Allergies Allergy/AdvReac Type Severity Reaction Status Date / Time No Known Allergies Allergy Verified 12/09/18 13:21 Physical Examination - Vital Signs Vital Signs: Vital Signs Temp Pulse Pulse Resp BP BP Pulse Ox 12/10/18 03:59 97.9 F 53 L 18 153/67 97 12/09/18 23:42 55 L 16 12/09/18 23:41 98.0 F 55 L 16 119/60 100 12/09/18 20:00 97.5 F L 56 L 18 134/72 98 12/09/18 18:23 97.5 F L 63 16 139/95 99 12/09/18 18:04 98.2 F 70 16 151/72 96 12/09/18 18:00 65 18 162/87 100 12/09/18 17:30 61 15 143/74 100 12/09/18 17:00 62 12 143/74 100 12/09/18 16:30 64 15 143/74 100 12/09/18 16:00 70 15 143/74 100 12/09/18 15:30 63 14 143/74 100 12/09/18 15:00 58 L 10 L 143/74 100 12/09/18 14:41 58 L 18 100 12/09/18 12:43 97.5 F L 55 L 16 152/81 100 Intake and Output 12/09/18 12/10/18 12/10/18 22:59 06:59 14:59 Intake Total 640 480 Output Total 500 Balance 140 480 Intake: Intake, IV Titration 640 Amount Sodium Chloride 0.9% 1, 640 000 ml @ 80 mls/hr IV . [id number] [facility] Rx#:[id number] Oral 480 Output: Urine 500 Other: Voiding Method Toilet Toilet Urinal Urinal # Voids 3 1 Weight 83 kg On examination patient is an elderly male, appears younger than his age. He is fully alert awake, oriented to time place and person. Speech and language functions normal. Attention and concentration fund of knowledge is adequate. On cranial nerve examination his pupils are round and reacting to light, visual atkins are full. Extraocular muscles are intact. Face is symmetric, tongue protrudes the midline. Palatal elevation and sensation normal. On muscle strength testing there is no pronator drift and the strength is normal in the arms and legs distally and proximally. Reflexes are 2+ in the upper limbs, trace to 1 in the lower limbs and plantars downgoing sensory touch is equal. No ataxia for [id number] tone and bulk of muscles normal. Gait deferred. Results - Laboratory Findings CBC and BMP: 12/09/18 12:50 12/09/18 12:50 Abnormal Lab Findings: Abnormal Labs 12/09/18 12/09/18 12:50 12:50 APTT 21.1 L Sodium 136 L BUN 25 H Glucose 103 H Assessment and Plan Assessment: * Episode of unresponsiveness, with tonic posturing and some blank stare, raising possibility of seizure. However the event was very short, lasting only for 5 seconds. Vasovagal syncope appears very unlikely, as it happened while patient was already in the supine position. Arrhythmia is also in the differential. * Abnormal computed tomography scan of head, with possibility of small encephalomalacia involving the right centrum semiovale, adjacent to the occipital horn. Rule out mass lesion, versus subacute to old ischemia. * Hypertension * Coronary artery disease status post bypass surgery in the past Plan: Awaiting MRI of the brain and an EEG. Further management will be based upon the results of MRI and EEG. Cardiology also has seen the patient, echo has been performed, results pending. We will follow after above testing has been completed.
[2018-12-10 11:25] VITALS: TEMP 98
--- NOTE | 2018-12-10 11:37 | P.DS ---
Providers Date of admission: 12/09/18 17:10 Expected date of discharge: 12/10/18 Attending physician: Carlos Lombardi Consults: 12/09/18 17:02 Consult Physician Routine Consulting Provider: Stella Neff Consult Reason/Comments: Possible seizure versus vasovagal episode Do you want consulting provider notified?: Yes 12/10/18 07:52 Consult Physician Routine Consulting Provider: Tori Mckeon Consult Reason/Comments: Syncope Do you want consulting provider notified?: Yes Primary care physician: Carlos Lombardi [facility] Course: 68-year-old male one of my office patient with known for many years with past medical history of CAD post CABG, history of stent placement as well is seen cardiology regular basis also patient is known to have history of hypertension hyperlipidemia and GERD who has been doing well until today when apparently was taking and nap woke up having an episode involving more tremor and shakiness in the right upper extremity jump out of bed mildly confuse sweaty and not feeling well did not compare has what he was doing his help him to go back in bed and all of a sudden had an episode of tonic clonic more tremor and shakiness in the right side and the left side but was not very clear tonic clonic but more atypical seizure with tremor on one side along with slight loss of consciousness for a few minutes and he regained his consciousness his called 911 patient brought to demurs department at [facility] CT of the brain was performed did not show any bleeding but small lacunar area of abnormality in the brain stem. Lab value and testing with troponin negative no sign of infection. 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 12/10: Patient has been seen by neurology. MRI of the brain reveals EEG was normal in wakefulness, drowsiness and stage II sleep. No focal paroxysmal or epileptiform activity seen. Carotid duplex is negative for hemodynamically significant stenosis. Patient has been seen by cardiology with recommendations to continue to monitor for tachycardia or bradycardic arrhythmias. Echocardiogram revealed EF of 60-65%, moderate concentric left hypertrophy, mild mitral regurgitation, moderate to severe tricuspid regurgitation, mild pulmonary hypertension. Discharge diagnoses: 1 severe acute syncopal episode: Most likely atypical seizure 2 atypical seizure 3 CAD: Post CABG and PCI with stent placement 4 hypertension 5 hyperlipidemia 6 severe GERD Discharge plan: Home Impression and plan of care have been directed as dictated by the signing physician. Neelima Hernandez nurse practitioner acting as scribe for signing physician. Patient Condition at Discharge: Good Plan - Discharge Summary Discharge Rx Participant: Yes New Discharge Prescriptions: New levETIRAcetam [Keppra] 500 mg PO Q12HR #60 tab Continue Super Cinnamon 1 tab PO DAILY Pravastatin Sodium [Pravachol] 40 mg PO HS Omeprazole Magnesium [PriLOSEC OTC] 20 mg PO DAILY Multivit-Min/FA/Lycopen/Lutein [Centrum Silver Tablet] 1 tab PO DAILY amLODIPine [Norvasc] 5 mg PO BID Metoprolol Tartrate [Lopressor] 50 mg PO QAM Metoprolol Tartrate [Lopressor] 25 mg PO HS Aspirin EC [Ecotrin Low Dose] 81 mg PO DAILY Losartan/Hydrochlorothiazide [Hyzaar 100-12.5 Tablet] 1 tab PO DAILY Acetaminophen [Tylenol Extra Strength] 500 mg PO Q6H PRN PRN Reason: Pain Discharge Medication List Acetaminophen [Tylenol Extra Strength] 500 mg PO Q6H PRN 12/09/18 [History] Aspirin EC [Ecotrin Low Dose] 81 mg PO DAILY 12/09/18 [History] Losartan/Hydrochlorothiazide [Hyzaar 100-12.5 Tablet] 1 tab PO DAILY 12/09/18 [History] Metoprolol Tartrate [Lopressor] 25 mg PO HS 12/09/18 [History] Metoprolol Tartrate [Lopressor] 50 mg PO QAM 12/09/18 [History] Multivit-Min/FA/Lycopen/Lutein [Centrum Silver Tablet] 1 tab PO DAILY 12/09/18 [History] Omeprazole Magnesium [PriLOSEC OTC] 20 mg PO DAILY 12/09/18 [History] Pravastatin Sodium [Pravachol] 40 mg PO HS 12/09/18 [History] Super Cinnamon 1 tab PO DAILY 12/09/18 [History] amLODIPine [Norvasc] 5 mg PO BID 12/09/18 [History] levETIRAcetam [Keppra] 500 mg PO Q12HR #60 tab 12/10/18 [Rx] Follow up Appointment(s)/Referral(s): Carlos Lombardi MD [Primary Care Provider] - 1 Week Greg Garcia DO [STAFF PHYSICIAN] - 2 Weeks Discharge Disposition: HOME SELF-CARE
--- NOTE | 2018-12-10 13:54 | EEG ---
ELECTROENCEPHALOGRAM REPORT DATE OF SERVICE: 12/10/2018 PREAMBLE: This is a 68-year-old male who has episodes of seizure versus syncope. This study is performed to evaluate for any epileptiform activity. CURRENT MEDICATIONS: Pravachol, pantoprazole, metoprolol, hydrochlorothiazide, aspirin, amlodipine and Tylenol. EEG FINDINGS: A routine 21-channel awake digital EEG recording was accomplished utilizing the 10-20 international system with bipolar and referential montages. The background consists of well developed, well regulated, moderate amplitude activity in 9 Hz alpha. Background is posterior dominant and reactive to eye opening and closing. Photic driving response was seen with some flash frequencies. Hyperventilation was not performed. Drowsiness was seen with appearance of bilaterally symmetric theta frequency rhythm. Stage II sleep was attained with presence of vertex waves and sleep spindles. More deeper stages of sleep were not seen. EKG rhythm lead revealed no obvious arrhythmia. No focal generalized epileptiform activity was seen. IMPRESSION: This is a normal EEG in wakefulness, drowsiness and stage II sleep. No focal paroxysmal or epileptiform activity was seen. Clinical correlation is recommended. MMODL / IJN: [id number] /
--- NOTE | 2018-12-10 15:43 | MR ---
EXAMINATION TYPE: MR brain wo/w con DATE OF EXAM: 12/10/2018 COMPARISON: CT brain 12/09/2018 HISTORY: Seizure, hx prostate ca CONTRAST: Performed utilizing 7.5 mL intravenous Gadavist gadolinium contrast. TECHNIQUE: Multiplanar, multiecho imaging on a 3.0 Kelsey magnet is performed through the brain. Stud y is not performed within 24 hours of arrival to the hospital. The craniovertebral junction is normal. The pituitary is normal. Diffusion-weighted imaging is performed. No abnormal hyperintensity is present to suggest an acute i ntracranial infarct or acute ischemic change. There are multiple scattered punctate periventricular and subcortical white matter changes within the white matter. The largest in the left centrum semiovale above the left lateral ventricle measures 1. 0 cm. There is an irregular hypointensity measuring 1.3 x 0.9 cm right parietal-occipital subcortical white matter. This has some surrounding hyperintensity in inversion recovery weighted sequences. There may be a punctate nodularity with mild enhancement, series 702, image 18. Hemangioblastoma should be con sidered. Differential diagnosis could include an older lacunar infarct and a focal area of gliosis fr om other etiologies. This is not a typical appearance for metastatic lesion. Tiny communication with the occipital horn lateral ventricle may be present, series 702 image 16, although the positioning is atypical for a trapped ventricle. Ventricles and sulci are mildly prominent for the patient age. IMPRESSIONS: 1. Given the positioning and findings of the hypointense area right parietal-occipital subcortical wh ite matter, close monitoring is recommended. Although a white matter subcortical infarct is favored, other etiologies including hemangioblastoma and focal gliosis from vasculitis should be considered. M etastatic disease considered less likely within the differential. 2. Multiple scattered bilateral subcortical and deep white matter changes. The largest measuring 1 cm superior to the right lateral ventricle.
[2018-12-10 16:56] VITALS: BP 118/64; PULSE 52
== END 2018-12-10 17:23 | disposition home or self-care (01) ==
LOC: EC 12:41 → 3SCARD 17:10
PROVIDERS: ADMIT Internal Medicine Geriatric Medicine; ATTEND Internal Medicine Geriatric Medicine
DX: R55 Syncope and collapse (principal); R56.9 Unspecified convulsions; R94.02 Abnormal brain scan; R11.2 Nausea with vomiting, unspecified; R61 Generalized hyperhidrosis; R25.1 Tremor, unspecified; R41.0 Disorientation, unspecified; I25.10 Atherosclerotic heart disease of native coronary artery without angina pectoris; I10 Essential (primary) hypertension; E78.5 Hyperlipidemia, unspecified; K21.9 Gastro-esophageal reflux disease without esophagitis; M19.90 Unspecified osteoarthritis, unspecified site; I44.0 Atrioventricular block, first degree; R00.1 Bradycardia, unspecified; E03.9 Hypothyroidism, unspecified; Z79.82 Long term (current) use of aspirin; Z79.899 Other long term (current) drug therapy; Z95.1 Presence of aortocoronary bypass graft; Z95.5 Presence of coronary angioplasty implant and graft; Z86.79 Personal history of other diseases of the circulatory system; Z87.01 Personal history of pneumonia (recurrent); Z83.3 Family history of diabetes mellitus; Z82.49 Family history of ischemic heart disease and other diseases of the circulatory system; Z80.8 Family history of malignant neoplasm of other organs or systems
CPT/HCPCS: 96361 ×2; 96374; 99285; 36415; 95819; 93005; 93306; 85379; 80053; 84443; 82550; 83735; 84484; 85025; 85610; 85730; 81003; 71046; 93880; 70450; 70553; G0378 ×2; J1953; A9585

== ENCOUNTER 2022-02-12 07:14 | Day surgery (SDC) | payer MEDICARE ==
[2022-02-11 09:56] VITALS: BMI 27.9
[~2022-02-12 07:14] MED LIST: LACTATED RINGERS 1,000 ML IV SCH; LIDOCAINE 1% (10MG/ML) FOR IV START INTRADERMA PRN
[2022-02-12 07:41] VITALS: TEMP 98
[2022-02-12] MEDS ORDERED: PROPOFOL 10 MG/ML 20 ML VIAL IV ONE (08:49)
[2022-02-12] MEDS ORDERED: LIDOCAINE 2% INJ 20 MG/ML (2 ML VIAL) ONE (08:49)
--- NOTE | 2022-02-12 09:11 | P.PCN ---
Date of Procedure: 02/12/22 Procedure(s) Performed: BRIEF HISTORY: Patient is a 71-year-old pleasant white male scheduled for an elective colonoscopy as a part of screening for colorectal neoplasia. His last colonoscopy was 10 years ago. PROCEDURE PERFORMED: Colonoscopy with snare polypectomy. PREOPERATIVE DIAGNOSIS: Screening for colon cancer. IV sedation per Anesthesia. PROCEDURE: After informed consent was obtained, the patient, was brought into the endoscopy unit. IV sedation was administered by Anesthesia under continuous monitoring. Digital rectal examination was normal. Initially the Olympus CF-160 flexible video colonoscope was then inserted in the rectum, gradually advanced into the cecum without any difficulty. Careful examination was performed as the scope was gradually being withdrawn. Ileocecal valve and the appendiceal orifice were visualized and appeared normal. Prep was excellent. Mucosa of the cecum, ascending colon appeared normal. In the transverse colon there was a 5 mm and 6 mm sessile polyp removed by snare polypectomy. In the ascending colon there was a 5 mm sessile polyp removed by snare polypectomy. Rest of the, transverse colon, descending colon, sigmoid colon, and rectum appeared normal. Scattered sigmoid diverticulosis seen. Retroflexion was performed in the rectum and no lesions were seen. The patient tolerated the procedure well. IMPRESSION: 5 mm and 6 mm transverse colon polyp status post polypectomy 5 mm descending colon polyp status post polypectomy Scattered sigmoid diverticulosis RECOMMENDATIONS: Findings of this examination were discussed with the patient as well as his family. He was advised to follow with the biopsy results. If the biopsy reveals adenoma he can have a repeat colonoscopy in 5 years..
[2022-02-12 09:38] VITALS: BP 159/52; PULSE 60; RESP 20
== END 2022-02-12 09:57 | disposition home or self-care (01) ==
LOC: ORWHC2ENDO 07:14
PROVIDERS: ATTEND Internal Medicine Gastroenterology
DX: Z12.11 Encounter for screening for malignant neoplasm of colon (principal); D12.4 Benign neoplasm of descending colon; D12.3 Benign neoplasm of transverse colon; K57.30 Diverticulosis of large intestine without perforation or abscess without bleeding; K21.9 Gastro-esophageal reflux disease without esophagitis; I10 Essential (primary) hypertension; E78.5 Hyperlipidemia, unspecified; Z95.1 Presence of aortocoronary bypass graft; Z79.82 Long term (current) use of aspirin; Z79.899 Other long term (current) drug therapy; Z80.8 Family history of malignant neoplasm of other organs or systems; Z83.3 Family history of diabetes mellitus; Z82.49 Family history of ischemic heart disease and other diseases of the circulatory system
CPT/HCPCS: 88305; 45385; J2704; J2001

== ENCOUNTER → 2024-05-02 | Outpatient (CLI) | payer MEDICARE ==
[2024-05-02 10:12] LABS: Basophils # (A) 0.05 X 10*3/uL (0.00-0.10); Basophils % (A) 0.7 %; Eosinophils # (A) 0.28 X 10*3/uL (0.04-0.35); HCT 44.1 % (39.6-50.0); HGB 15.1 g/dL (13.0-17.0); Lymphocytes # (A) 1.73 X 10*3/uL (0.90-5.00); Lymphocytes % (A) 24.9 %; MCH 29.6 pg (27.0-32.0); MCHC 34.2 g/dL (32.0-37.0); MCV 86.5 FL (80.0-97.0); Mean Platelet Volume 10.1 FL (9.5-12.2); Monocytes # (A) 0.62 X 10*3/uL (0.20-1.00); Monocytes % (A) 8.9 %; NRBC Per 100 WBC 0 X 10*3/uL (0.00-0.01); Neutrophils # (A) 4.26 X 10*3/uL (1.80-7.70); Neutrophils % (A) 61.2 %; Platelet Count 239 X 10*3/uL (140-440); RDW 12.4 % (11.5-14.5); WBC 6.96 X 10*3/uL (4.50-10.00)
[2024-05-02 10:32] LABS: ALT 29 U/L (10-49); AST 28 U/L (14-35); Albumin 4.5 g/dL (3.8-4.9); Albumin/Globulin Ratio 1.55 Ratio (1.60-3.17); Alkaline Phosphatase 72 U/L (41-126); BUN/Creat Ratio 16.45 Ratio (12.00-20.00); Blood Urea Nitrogen 18.1 mg/dL (9.0-27.0); Calcium 9.8 mg/dL (8.7-10.3); Carbon Dioxide 24.9 mmol/L (21.6-31.8); Chloride 104 mmol/L (96-109); Chol/HDL Ratio 2.65 Ratio; Globulin 2.9 g/dL (1.6-3.3); Glucose 104 mg/dL (70-110); LDL Cholesterol,Calculated 76.7 mg/dL (0.0-131.0); Potassium 4.7 mmol/L (3.5-5.5); Prostate Specific Antigen 0.98 ng/mL (0.000-6.500); Sodium 140 mmol/L (135-145); T4, Free (Free Thyroxine) 1.43 ng/dL (0.80-1.80); Total Bilirubin 0.5 mg/dL (0.3-1.2); Total Protein 7.4 g/dL (6.2-8.2)
== END | disposition home or self-care (01) ==
LOC: LABWHC1 06:56
PROVIDERS: ATTEND Internal Medicine Geriatric Medicine
CPT/HCPCS: 36415; 80053; 80061; 83036; 84153; 84439; 84443; 85025

== ENCOUNTER → 2024-10-28 | Outpatient (CLI) | payer MEDICARE ==
[2024-10-28 10:22] LABS: Basophils # (A) 0.05 X 10*3/uL (0.00-0.10); Basophils % (A) 0.8 %; Eosinophils # (A) 0.28 X 10*3/uL (0.04-0.35); Eosinophils % (A) 4.7 %; HCT 41.9 % (39.6-50.0); HGB 14.8 g/dL (13.0-17.0); Lymphocytes # (A) 1.75 X 10*3/uL (0.90-5.00); Lymphocytes % (A) 29.1 %; MCH 30.3 pg (27.0-32.0); MCHC 35.3 g/dL (32.0-37.0); MCV 85.9 FL (80.0-97.0); Mean Platelet Volume 10.3 FL (9.5-12.2); Monocytes # (A) 0.62 X 10*3/uL (0.20-1.00); Monocytes % (A) 10.3 %; NRBC Per 100 WBC 0 X 10*3/uL (0.00-0.01); Neutrophils # (A) 3.31 X 10*3/uL (1.80-7.70); Neutrophils % (A) 54.9 %; Platelet Count 220 X 10*3/uL (140-440); RBC 4.88 X 10*6/uL (4.40-5.60); RDW 12.4 % (11.5-14.5); WBC 6.02 X 10*3/uL (4.50-10.00)
[2024-10-28 11:00] LABS: BUN/Creat Ratio 18.08 Ratio (12.00-20.00); Blood Urea Nitrogen 21.7 mg/dL (9.0-27.0); Carbon Dioxide 26.6 mmol/L (21.6-31.8); Chloride 103 mmol/L (96-109); Chol/HDL Ratio 2.61 Ratio; Creatine Kinase 137 U/L (35-257); Glucose 101 mg/dL (70-110); LDL Cholesterol,Calculated 64.8 mg/dL (0.0-131.0); Potassium 4.7 mmol/L (3.5-5.5); Sodium 140 mmol/L (135-145)
[2024-10-28 11:01] LABS: ALT 32 U/L (10-49); AST 31 U/L (14-35); Albumin 4.4 g/dL (3.8-4.9); Albumin/Globulin Ratio 1.47 Ratio (1.60-3.17); Alkaline Phosphatase 70 U/L (41-126); Calcium 9.6 mg/dL (8.7-10.3); T4, Free (Free Thyroxine) 1.33 ng/dL (0.80-1.80); Total Bilirubin 0.5 mg/dL (0.3-1.2); Total Protein 7.4 g/dL (6.2-8.2)
== END | disposition home or self-care (01) ==
LOC: LABWHC1 07:04
PROVIDERS: ATTEND Internal Medicine Geriatric Medicine
DX: I25.10 Atherosclerotic heart disease of native coronary artery without angina pectoris (principal); E03.9 Hypothyroidism, unspecified; R73.9 Hyperglycemia, unspecified
CPT/HCPCS: 36415; 80053; 80061; 82550; 83036; 84439; 84443; 85025